=== PATIENT | female | born 1945 | race Caucasian/White ===

== ENCOUNTER → 2017-03-01 | Outpatient (CLI) | payer MEDICARE ==
--- NOTE | 2017-03-01 12:04 | PN ---
DATE OF SERVICE: 03/01/2017 A 71-year-old lady who has been [facility] in the [facility] for treatment of obstructive sleep apnea-hypopnea syndrome. Recently patient had home sleep apnea test which showed severe obstructive sleep apnea-hypopnea syndrome and then patient had CPAP titration. I discussed the results of the sleep studies with patient in detail. CPAP titration showed normalization of breathing with the pressure of 9 cm of water. Recently patient received her CPAP unit, she brought her CPAP unit with her for this appointment. On treatment with CPAP, she said it improved her sleep and she feels better during the day. [place] sleepiness scale was only 1. I checked her CPAP unit. CPAP pressure is 9 cm of water. Ramp is 15 minutes/ usage is 29 out of 30 nights and 26 out of 30 nights for more than 4 hours. Average usage is 6.4 hours. Leak is up to 26 L/min which is acceptable. Apnea- hypopnea index reading for the last month was 0.6 which is totally normal. MEDICATIONS: NovoLog, metformin, atorvastatin, triamterene, hydrochlorothiazide , valsartan, Toujeo, nitro-stat, vitamin D. During physical exam, patient in no distress, BP 109/41, HR 86, RR16, weight 299 , temp 98.2, oxygen saturation on room air 95%. OROPHARYNX: Short distance between soft palpate and pharyngeal wall, absence of uvula. ABDOMEN: Obese. EXTREMITIES: 1 to 2+ bilateral ( ) edema NECK: Supple, No JVD, Thyroid is not palpable. LUNGS: Clear to percussion and to auscultation. Good air exchange. No wheezing or rhonchi. HEART: S1, S2 regular. No murmurs, gallops or rubs. ABDOMEN: Soft and nontender, Bowel sounds are present. No organomegaly appreciated. GAMING TABLE OPERATOR: Awake, alert and oriented x3. Cranial nerves 2 to7 intact. There is no fasciculation or atrophy noted. No focal deficits observed. IMPRESSION: 1. Severe obstructive sleep apnea-hypopnea syndrome. Apnea-hypopnea index 30.5 under control with CPAP at 9 cm of water. Patient demonstrated very good compliance with treatment benefiting from treatment. 2. Obesity. 3. Hypertension. 4. Diabetes mellitus. 5. Hyperlipidemia. 6. Severe periodic limb movements during titration. Patient does not complain of many leg movements at night. 7. Diabetes mellitus. 8. Hyperlipidemia. 9. Status post surgical treatment for ovarian cyst. 10. Status post tonsillectomy and adenoidectomy. 11. Status post breast reduction. 12. Swelling of the legs. PLAN: 1. Patient will continue to use her CPAP every night for the whole night with the same regimen. 2. Aggressive losing weight. 3. Sleep hygiene with regular time in bed for at least 8 hours. 4. No driving of feeling any sleepiness. 5. Prescription for all necessary CPAP supplies. 6. Follow up visit in one year or earlier if patient has any problems with the her sleep or CPAP therapy. Thank you very much for allowing me to participate in the management of your patient. Sincerely, Sumit Drummond MD PhD, FAASM Diplomate of [place] [employer], Sleep Medicine Board by [place] [employer] [place] [employer] [facility]
== END | disposition home or self-care (01) ==
LOC: SLEEP 10:39
PROVIDERS: ATTEND Internal Medicine
DX: G47.33 Obstructive sleep apnea (adult) (pediatric) (principal); E66.9 Obesity, unspecified; I10 Essential (primary) hypertension; E11.9 Type 2 diabetes mellitus without complications; E78.5 Hyperlipidemia, unspecified; G47.61 Periodic limb movement disorder

== ENCOUNTER → 2018-04-18 | Outpatient (CLI) | payer MEDICARE ==
--- NOTE | 2018-04-18 16:58 | PN ---
PROGRESS NOTE DATE OF SERVICE: 04/18/2018 This patient is a 72-year-old lady who has been followed in the sleep center for treatment of obstructive sleep apnea-hypopnea syndrome. The patient has continued to use her equipment every night for the whole night without significant problems, although her mask is already quite old and she needs to replace it. She is using a full-face Marilu View mask. [place] Sleepiness Scale today is only 2. I checked patient's CPAP unit. CPAP pressure is 9 cm of water. Usage is 100% of the time, average 8.1 hours per night. Apnea-hypopnea index on the machine is only 0.3, which is totally perfect. Leak is high, 44 L/minute, but again patient's mask is old. MEDICATIONS: Medications are the same: 1. NovoLog. 2. Metformin. 3. Atorvastatin. 4. Triamterene. 5. Hydrochlorothiazide. 6. Valsartan. 7. Nitrostat. 8. Vitamin D. PHYSICAL EXAMINATION: GENERAL A pleasant patient in no distress. VITAL SIGNS: BP 130/71, HR 94, RR 16, height 5 feet 3 inches, weight 289, BMI 57.1. Temperature 97.4. Oxygen saturation at room air 96%. HEENT: PERRLA, EOMI. Evaluation of oropharynx showed tongue protrudes midline; moderately low position of soft palate. NECK: Supple. No JVD. Thyroid is not palpable. LUNGS: Clear to percussion and to auscultation. Good air exchange. No wheezing or rhonchi. HEART: S1, S2 regular. No murmurs, gallops or rubs. ABDOMEN: Obese. EXTREMITIES : One plus ankle edema. IMPRESSION: 1. Obstructive sleep apnea-hypopnea syndrome in severe range. Apnea-hypopnea index 30.5. Patient demonstrated 100% compliance with treatment, benefitting from treatment. 2. Obesity. 3. Hypertension. 4. Diabetes mellitus. 5. Hyperlipidemia. 6. History of periodic limb movements during titration. No problem with her legs at the present time. 7. Diabetes mellitus. 8. Hyperlipidemia. 9. Status post surgical treatment for ovarian cyst. 10.Status post tonsillectomy and adenoidectomy. 11.Status post breast reduction. PLAN: 1. Patient will continue to use his CPAP equipment every night for the whole night. 2. Prescription for all necessary CPAP supplies, including Marilu View full-face mask, tube, filters. 3. Losing weight. 4. Sleep hygiene with regular time in bed for at least 8 hours. 5. No driving if feeling any sleepiness. 6. Follow-up visit in one year or earlier if patient has any problems. Thank you very much for allowing me to participate in the management of your patient. Sincerely, Sumit Drummond MD, PhD, FAASM Diplomat of [place] [employer] [place] [employer] [facility] MMODL / ANAN: [id number] /
== END | disposition home or self-care (01) ==
LOC: SLEEP 14:56
PROVIDERS: ATTEND Internal Medicine
DX: G47.33 Obstructive sleep apnea (adult) (pediatric) (principal); I10 Essential (primary) hypertension; E11.9 Type 2 diabetes mellitus without complications; E78.5 Hyperlipidemia, unspecified; E66.9 Obesity, unspecified; Z68.43 Body mass index [BMI] 50.0-59.9, adult; Z90.89 Acquired absence of other organs; Z79.4 Long term (current) use of insulin; Z79.84 Long term (current) use of oral hypoglycemic drugs; Z79.899 Other long term (current) drug therapy; Z99.89 Dependence on other enabling machines and devices; Z98.890 Other specified postprocedural states

== ENCOUNTER 2023-01-09 08:18 | Day surgery (SDC) | payer MEDICARE, OTHER ==
[2023-01-04 15:02] VITALS: BMI 30.2
[~2023-01-09 08:18] MED LIST: DEXAMETHASONE SOD PHOSPHATE 4 MG/ML 1 ML VIAL IV ONE; HYDROmorphone 0.5 MG/0.5 ML SYRINGE IVP PRN; LACTATED RINGERS 1,000 ML IV SCH; LIDOCAINE 1% (10MG/ML) FOR IV START INTRADERMA PRN; MIDAZOLAM 2 MG/2 ML VIAL IV PRN; ONDANSETRON 4 MG/2 ML VIAL IVP ONE
--- NOTE | 2023-01-09 08:26 | P.HPIHPCON ---
History of Present Illness H&P Date: 01/09/23 Chief Complaint: Right sided ureteral stone This is a 77-year-old female with history of a 7 mm right-sided proximal ureteral stone. Underwent a stent insertion on November 24. She presents today for definitive stone management. Discussed option of right-sided ureteroscopy with holmium laser. Risk of bleeding, infection, injury to the ureter was discussed in detail. Risk of anesthesia also discussed. She understood all the risk and agreed to proceed with right-sided ureteroscopy, with holmium laser lithotripsy, stone basketing and stent removal Consent for Procedure: I have explained the operation/procedure to the patient, including the risks, benefits, side effects, alternative therapies (including not receiving the proposed treatment or service), the likelihood of the patient achieving his/her goals, and potential recuperation problems for the procedure/sedation/analgesia, as well as any blood products, if indicated. I also explained to the patient the risks, benefits and side effects of the alternatives, as well as the risks rel ated to not receiving the proposed procedure, care, treatment, or services. Past Medical History Past Medical History: Cancer, Diabetes Mellitus, Hyperlipidemia, Hypertension, Renal Disease, Sleep Apnea/CPAP/BIPAP, Supraventricular Tachycardia (SVT) Additional Past Medical History / Comment(s): ECF RESIDENT. BRAIN TUMOR-WAS SMALL AND DISCOVERED IN 2015, PT DID NOT FOLLOW UP AND NOW IT IS LARGER AND SYMPTOMATIC-UNK IF CANCEROUS AT THIS POINT-LOTS OF DIZZINESS WITH POSITION CHANGES. PT WAS TAKEN OFF DIABETIC MEDS DUE TO NORMAL BS AND HGB A1C OF 4.2, HAS RECENTLY BEEN ON STEROIDS AND HAS HAD ELEVATED SUGARS AND HER DR IS AWARE History of Any Multi-Drug Resistant Organisms: None Reported Past Surgical History: Adenoidectomy, Breast Surgery, Tonsillectomy Additional Past Surgical History / Comment(s): BREAST REDUCTION. SURG. FOR OVARIAN CYST Past Anesthesia/Blood Transfusion Reactions: Motion Sickness Additional Past Anesthesia/Blood Transfusion Reaction / Comment(s): HX OF VERTIGO Past Psychological History: No Psychological Hx Reported Smoking Status: Never smoker Past Alcohol Use History: None Reported Past Drug Use History: None Reported - Past Family History Father Family Medical History: Cancer Mother Family Medical History: COPD Medications and Allergies Home Medications Medication Instructions Recorded Confirmed Type Atorvastatin Calcium 20 mg PO HS 01/04/23 01/04/23 History Flecainide Acetate [Tambocor] 100 mg PO Q12H 01/04/23 01/04/23 History Magnesium Oxide [Mag-Ox] 400 mg PO DAILY 01/04/23 01/04/23 History Allergies Allergy/AdvReac Type Severity Reaction Status Date / Time methocarbamol [From Robaxin] Allergy Unknown Verified 01/04/23 14:54 Sulfa (Sulfonamide Allergy Unknown Verified 01/04/23 14:54 Antibiotics) Surgical - Exam - General no distress, moderate pain - Eyes normal ocular movement, no pale - ENT normal nares, normal mucosa - Respiratory normal expansion, normal respiratory effort Assessment and Plan Assessment: OR for right-sided ureteroscopy, with holmium laser lithotripsy, stone basketing and stent removal
--- NOTE | 2023-01-09 08:52 | XR ---
EXAMINATION TYPE: XR KUB DATE OF EXAM: 01/09/2023 Comparison: None Clinical History: 77-year-old female N20.1 Findings: Right-sided ureteral stent. Prominent vascular calcifications in the pelvis. Nonobstructive bowel gas pattern. Multiple moderate stool in the right side of the abdomen. Some focal mottled hypodensity me asuring 6.3 x 3.3 cm in the left side of the pelvis. Unclear if these represent calcified fibroids or residual oral contrast material. Other etiology not excluded at this time. Numerous small pelvic phleboliths. No definite suspicious calcification along the course of the urete ral stent. Moderate degenerative changes both hips and bridging endplate spondylosis lumbar spine. Impression: 1. Right-sided ureteral stent. No definite suspicious calcification seen along the course of the sten t. 2. 6.3 x 3.3 cm focal area of mottled high density in the left side of the pelvis. Unclear if this re presents residual oral contrast, calcified fibroids, or other abnormality. Outpatient contrast-enhanc ed CT of the pelvis can further evaluate.
[2023-01-09 09:41] LABS: Glucose,Whole Blood 127 mg/dL (70-110)
[2023-01-09] MEDS ORDERED: MIDAZOLAM 2 MG/2 ML VIAL ONE (10:00)
[2023-01-09] MEDS ORDERED: HYDROCORTISONE SUCCINATE 100 MG/2 ML VIAL ONE (10:00)
[2023-01-09] MEDS ORDERED: LIDOCAINE 2% INJ 20 MG/ML (2 ML VIAL) ONE (10:00)
[2023-01-09] MEDS ORDERED: fentaNYL (PF) 50 MCG/ML 2 ML AMP ONE (10:00)
[2023-01-09] MEDS ORDERED: PROPOFOL 10 MG/ML 20 ML VIAL IV ONE (10:00)
[2023-01-09] MEDS ORDERED: ePHEDrine 50 MG/ML 1 ML VIAL ONE (10:00)
[2023-01-09 10:21] LABS: African American GFR (CKD) >90 (>60 ml/min/1.73 sqM); Anion Gap 10 mmol/L; Blood Urea Nitrogen 35 mg/dL (7-17); Carbon Dioxide 24 mmol/L (22-30); Chloride 100 mmol/L (98-107); Glucose 138 mg/dL (74-99); Non-African American GFR(CKD) 87 (>60 ml/min/1.73 sqM); Sodium 134 mmol/L (137-145)
[2023-01-09 10:31] LABS: Potassium 4.4 mmol/L (3.5-5.1)
[2023-01-09 11:08] VITALS: TEMP 97
--- NOTE | 2023-01-09 11:23 | P.OP ---
Date of Procedure: 01/09/23 Preoperative Diagnosis: Right ureteral, renal stones Postoperative Diagnosis: Same l Procedure(s) Performed: Cystoscopy, right ureteroscopy, holmium laser lithotripsy Implants: none Anesthesia: OSIELA Surgeon: Braxton Castaneda Estimated Blood Loss (ml): 5 Pathology: other (Right ureteral, renal stones) Condition: stable Disposition: PACU Indications for Procedure: This is a 77-year-old female with history of a 7 mm right-sided proximal ureteral stone. Underwent a stent insertion on November 24. She presents today for definitive stone management. Discussed option of right-sided ureteroscopy with holmium laser. Risk of bleeding, infection, injury to the ureter was discussed in detail. Risk of anesthesia also discussed. She understood all the risk and agreed to proceed with right-sided ureteroscopy, with holmium laser lithotripsy, stone basketing and stent removal Operative Findings: Right proximal ureteral stone, small stones within the lower pole Description of Procedure: Patient brought to the operating room, general anesthesia was induced. She was prepped and draped in sterile fashion and placed in dorsal lithotomy position. Cystoscopy fitted 21-Ind[place] sheath was inserted per urethra, cystoscopy was performed which showed no abnormality within the bladder. Attention was then carried to the right ureteral stent which was grabbed and removed to the meatus. Next a sensor wire was advanced through the stent the stent was removed with the wire in place. Next under fluoroscopy 1113 [place] access sheath was passed over the wire and into the proximal ureter. Next a flexible ureteroscope was inserted through the access sheath, at this point a large stone was encountered in the proximal ureter. Using the holmium laser the stone was fragmented, sizable fragments were removed using the stone basket. Repeat renoscopy showed no sizable fragments or injury to the kidney. Of note there was a additional stone in the lower pole that was grasped and removed intact and sent to p athology. Repeat renoscopy showed no injury to the kidney or any sizable fragments. Pullback ureteroscopy was performed showed no injury to the ureter or any ureteral fragments. The bladder was emptied at the end of the case. Patient tolerated procedure well was taken to recovery in stable condition
[2023-01-09 12:17] LABS: Glucose,Whole Blood 165 mg/dL (70-110)
[2023-01-09 12:43] VITALS: RESP 17
[2023-01-09 13:21] VITALS: BP 115/69; PULSE 68
--- NOTE | 2023-01-09 15:33 | FL ---
EXAMINATION TYPE: FL guidance operating room DATE OF EXAM: 01/09/2023 FLUOROSCOPY Fluoroscopy time of 11 seconds was used during urologic intervention for right kidney stone lithotrip sy. 2 image/s document/s the procedure. DOSE AREA PRODUCT (DAP) UGY*M,MGY*CM: 0.037.
== END 2023-01-09 13:25 | disposition home or self-care (01) ==
LOC: OR 08:18
PROVIDERS: ATTEND Urology
DX: N20.2 Calculus of kidney with calculus of ureter (principal); I10 Essential (primary) hypertension; E78.5 Hyperlipidemia, unspecified; G47.33 Obstructive sleep apnea (adult) (pediatric); E11.9 Type 2 diabetes mellitus without complications; K21.9 Gastro-esophageal reflux disease without esophagitis; Z85.841 Personal history of malignant neoplasm of brain; Z79.84 Long term (current) use of oral hypoglycemic drugs; Z79.899 Other long term (current) drug therapy; Z88.2 Allergy status to sulfonamides; Z88.8 Allergy status to other drugs, medicaments and biological substances
CPT/HCPCS: 52353; 80048; 82365; 74018; C1769; J2250; J1100; J1720; J0690; J2405; J3010; J2704; J2001

== ENCOUNTER 2023-05-02 11:55 | Observation (INO) | payer MEDICARE, OTHER ==
--- NOTE | 2023-05-02 12:19 | ED ---
General Adult HPI - General Source: patient, RN notes reviewed Mode of arrival: ambulatory Limitations: no limitations <Abelino Pan - Last Filed: 05/02/23 12:18> - General Source: RN notes reviewed, old records reviewed Mode of arrival: ambulatory Limitations: no limitations - History of Present Illness -: month(s) Radiation: non-radiation Severity scale (1-10): 7 Quality: sharp Consistency: constant Improves with: none Worsens with: none Associated Symptoms: denies other symptoms Treatments Prior to Arrival: none <Harry Hwang - Last Filed: 05/09/23 17:16> - General Stated complaint: Abn Labs Time Seen by Provider: 05/02/23 12:18 - History of Present Illness Initial comments: 77-year-old female presents emergency Department chief complaint of right sided infection by her buttocks, hip. Patient states she started a small wound that has steadily gotten worse. She states that she saw PCP today and was sent here for evaluation possible admission. They're concerned that she has cellulitis, ulceration. (Abelino Pan) This is a 77-year-old female to the emergency room today for evaluation of right-sided buttox infection. History of sacral ulcer which is gotten significant way worse sent in by PCP as it is significantly swollen ulcerated with drainage malodorous. Patient denies abdominal pain fever no nausea vomiting currently. (Harry Hwang) - Related Data Home Medications Medication Instructions Recorded Confirmed Atorvastatin Calcium 20 mg PO HS 01/04/23 05/02/23 Magnesium Oxide [Mag-Ox] 400 mg PO DAILY 01/04/23 05/02/23 Aspirin EC [Ecotrin Low Dose] 81 mg PO DAILY 05/02/23 05/02/23 Cholecalciferol [Vitamin D3 (25 25 mcg PO DAILY 05/02/23 05/02/23 Mcg = 1000 Iu)] Metoprolol Succinate (ER) [Toprol 25 mg PO DAILY 05/02/23 05/02/23 XL] Previous Rx's Medication Instructions Recorded Doxycycline [Vibramycin] 100 mg PO BID 10 Days #20 capsule 05/05/23 Pantoprazole [Protonix] 40 mg PO AC-BRKFST #30 tab 05/05/23 Allergies Allergy/AdvReac Type Severity Reaction Status Date / Time methocarbamol [From Robaxin] Allergy Unknown Verified 05/02/23 12:39 Sulfa (Sulfonamide Allergy Unknown Verified 05/02/23 12:39 Antibiotics) Review of Systems ROS Other: All systems not noted in ROS Statement are negative. <Abelino Pan - Last Filed: 05/02/23 12:18> ROS Other: All systems not noted in ROS Statement are negative. <Harry Hwang - Last Filed: 05/09/23 17:16> ROS Statement: Those systems with pertinent positive or pertinent negative responses have been documented in the HPI. Past Medical History Past Medical History: Cancer, Diabetes Mellitus, Hyperlipidemia, Hypertension, Renal Disease, Sleep Apnea/CPAP/BIPAP, Supraventricular Tachycardia (SVT) Additional Past Medical History / Comment(s): ECF RESIDENT. BRAIN TUMOR-WAS SMALL AND DISCOVERED IN 2015, PT DID NOT FOLLOW UP AND NOW IT IS LARGER AND SYMPTOMATIC-UNK IF CANCEROUS AT THIS POINT-LOTS OF DIZZINESS WITH POSITION CHANGES. PT WAS TAKEN OFF DIABETIC MEDS DUE TO NORMAL BS AND HGB A1C OF 4.2, HAS RECENTLY BEEN ON STEROIDS AND HAS HAD ELEVATED SUGARS AND HER DR IS AWARE History of Any Multi-Drug Resistant Organisms: None Reported Past Surgical History: Adenoidectomy, Breast Surgery, Tonsillectomy Additional Past Surgical History / Comment(s): BREAST REDUCTION. SURG. FOR OVARIAN CYST Past Anesthesia/Blood Transfusion Reactions: Motion Sickness Additional Past Anesthesia/Blood Transfusion Reaction / Comment(s): HX OF VERTIGO Past Psychological History: No Psychological Hx Reported Smoking Status: Never smoker Past Alcohol Use History: None Reported Past Drug Use History: None Reported - Past Family History Father Family Medical History: Cancer Mother Family Medical History: COPD <Abelino Pan - Last Filed: 05/02/23 12:18> General Exam <Abelino Pan - Last Filed: 05/02/23 12:18> General appearance: alert, in no apparent distress Head exam: Present: atraumatic, normocephalic, normal inspection Eye exam: Present: normal appearance, PERRL, EOMI. Absent: scleral icterus, conjunctival injection, periorbital swelling ENT exam: Present: normal exam, mucous membranes moist Neck exam: Present: normal inspection. Absent: tenderness, meningismus, lymphadenopathy Respiratory exam: Present: normal lung sounds bilaterally. Absent: respiratory distress, wheezes, rales, rhonchi, stridor Cardiovascular Exam: Present: regular rate, normal rhythm, normal heart sounds. Absent: systolic murmur, diastolic murmur, rubs, gallop, clicks GI/Abdominal exam: Present: soft, normal bowel sounds. Absent: distended, tenderness, guarding, rebound, rigid Extremities exam: Present: normal inspection, full ROM, normal capillary refill. Absent: tenderness, pedal edema, joint swelling, calf tenderness Back exam: Present: normal inspection Neurological exam: Present: alert, oriented X3, CN II-XII intact Psychiatric exam: Present: normal affect, normal mood Skin exam: Present: warm, dry, intact, normal color. Absent: rash <Harry Hwang - Last Filed: 05/09/23 17:16> - General Exam Comments Initial Comments: Visual Physical Exam Vital signs reviewed General: Well-appearing, nontoxic, no acute distress. Head: Normocephalic, atraumatic Eyes: PERRLA, EOMI ENT: Airway patent Chest: Nonlabored breathing Skin: No visual rash, normal skin tone Neuro: Alert and oriented 3 Musculoskeletal: No gross abnormalities (Abelino Pan) Course <Harry Hwang - Last Filed: 05/09/23 17:16> Vital Signs 05/02/23 05/02/23 05/03/23 12:36 22:30 01:44 Temperature 97.6 F Pulse Rate 59 L 66 63 Pulse Rate [ Pulse Oximetery ] Respiratory 18 16 16 Rate Blood Pressure 133/59 134/77 149/82 Blood Pressure [Right Arm] O2 Sat by Pulse 100 100 100 Oximetry 05/03/23 02:00 Temperature 97.6 F Pulse Rate Pulse Rate [ 67 Pulse Oximetery ] Respiratory 15 Rate Blood Pressure Blood Pressure 130/76 [Right Arm] O2 Sat by Pulse 100 Oximetry - Reevaluation(s) Reevaluation #1: 05/02/23 19:34 Medical records reviewed (Harry Hwang) Reevaluation #2: 05/02/23 19:34 Patient symptoms unchanged (Harry Hwang) Reevaluation #3: 05/02/23 19:34 Patient informed results questions answered (Harry Hwang) Reevaluation #4: 05/02/23 19:34 Was pt. sent in by a medical professional or institution (JASWINDER Fowler, DATA INPUT CLERK, urgent care, hospital, or halfway...) When possible be specific @ -no Did you speak to anyone other than the patient for history (EMS, parent, family, police, friend...)? What history was obtained from this source @ -no Did you review nursing and triage notes (agree or disagree)? Why? @ -agree Are old charts reviewed (outside hosp., previous admission, EMS record, old EKG, old radiological studies, urgent care reports/EKG's, halfway records)? Report findings @ -yes Differential Diagnosis (chest pain, altered mental status, abdominal pain women, abdominal pain men, vaginal bleeding, weakness, fever, dyspnea, syncope, headache, dizziness, GI bleed, back pain, seizure, CVA, palpatations, mental health, musculoskeletal)? @ -prior EKG interpreted by me (3pts min.). @ -no X-rays interpreted by me (1pt min.). @ -no CT interpreted by me (1pt min.). @ -no U/S interpreted by me (1pt. min.). @ -no What testing was considered but not performed or refused? (CT, X-rays, U/S, labs)? Why? @ -none What meds were considered but not given or refused? Why? @ -none Did you discuss the management of the patient with other professionals (professionals i.e. JASWINDER Fowler, DATA INPUT CLERK, lab, RT, psych nurse, social media specialist, side door worker, teacher, radiation safety officer, case briefer)? Give summary @ -no Was smoking cessation discussed for >3mins.? @ -no Was critical care preformed (if so, how long)? @ -no Were there social determinants of health that impacted care today? How? (Homelessness, low income, unemployed, alcoholism, drug addiction, transportation, low edu. Level, literacy, decrease access to med. care, custodial, rehab)? @ -none Was there de-escalation of care discussed even if they declined (Discuss DNR or withdrawal of care, Hospice)? DNR status @ -no What co-morbidities impacted this encounter? (DM, HTN, Smoking, COPD, CAD, Cancer, CVA, ARF, Chemo, Hep., AIDS, mental health diagnosis, sleep apnea, morbid obesity)? @ -none Was patient admitted / discharged? Hospital course, mention meds given and route, prescriptions, significant lab abnormalities, going to OR and other pertinent info. @ - 77 female to the emergency department for evaluation of right sacral decubitus ulcer. Patient be admitted for will care and IV antibiotics secondary to malodorous discharge Admitted Undiagnosed new problem with uncertain prognosis? @ -no Drug Therapy requiring intensive monitoring for toxicity (Heparin, Nitro, Insulin, Cardizem)? @ -no Were any procedures done? @ -no Diagnosis/symptom? @ -Sacral decubitus ulcer with infection Acute, or Chronic, or Acute on Chronic? @ -Acute Uncomplicated (without systemic symptoms) or Complicated (systemic symptoms)? @ -Complicated Side effects of treatment? @ -no Exacerbation, Progression, or Severe Exacerbation? @ -exacerbation Poses a threat to life or bodily function? How? (Chest pain, [place], [place], pneumonia, PE, COPD, DKA, ARF, appy, cholecystitis, CVA, Diverticulitis, Homicidal, Suicidal, threat to staff... and all critical care pts) @ -yes with abscess, sepsis, need for surgery (Harry Hwang) - Consultations Consultation #1: Spoke with PMH of the admit this patient (Harry Hwang) Medical Decision Making <Abelino Pan - Last Filed: 05/02/23 12:18> - Lab Data Result diagrams: 05/03/23 05:28 05/05/23 06:50 <Harry Hwang - Last Filed: 05/09/23 17:16> - Medical Decision Making I performed a quick note portion of this Chart signed Abelino Pan PA-C (Abelino Pan) 77 female to the emergency department for evaluation of right sacral decubitus ulcer. Patient be admitted for will care and IV antibiotics secondary to malodorous discharge (Harry Hwang) - Lab Data Lab Results 05/02/23 05/02/23 05/02/23 Range/Units 13:29 13:29 16:41 WBC 8.1 (3.8-10.6) k/uL RBC 4.93 (3.80-5.40) m/uL Hgb 14.4 (11.4-16.0) gm/dL Hct 45.3 (34.0-46.0) % MCV 91.8 (80.0-100.0) fL MCH 29.1 (25.0-35.0) pg MCHC 31.7 (31.0-37.0) g/dL RDW 13.4 (11.5-15.5) % Plt Count 176 (150-450) k/uL MPV 9.1 Neutrophils % 56 % Lymphocytes % 29 % Monocytes % 7 % Eosinophils % 4 % Basophils % 1 % Neutrophils # 4.5 (1.3-7.7) k/uL Lymphocytes # 2.4 (1.0-4.8) k/uL Monocytes # 0.5 (0-1.0) k/uL Eosinophils # 0.4 (0-0.7) k/uL Basophils # 0.1 (0-0.2) k/uL Sodium 138 (137-145) mmol/L Potassium 4.9 (3.5-5.1) mmol/L Chloride 103 (98-107) mmol/L Carbon Dioxide 27 (22-30) mmol/L Anion Gap 8 mmol/L BUN 26 H (7-17) mg/dL Creatinine 0.74 (0.52-1.04) mg/dL Est GFR (CKD-EPI)AfAm >90 (>60 ml/min/1.73 sqM) Est GFR (CKD-EPI)NonAf 80 (>60 ml/min/1.73 sqM) Glucose 144 H (74-99) mg/dL Plasma Lactic Acid Daniel 1.4 (0.7-2.0) mmol/L Calcium 9.3 (8.4-10.2) mg/dL Total Bilirubin 1.0 (0.2-1.3) mg/dL AST 44 H (14-36) U/L ALT 23 (4-34) U/L Alkaline Phosphatase 92 (38-126) U/L Total Protein 6.8 (6.3-8.2) g/dL Albumin 4.0 (3.5-5.0) g/dL Disposition <Abelino Pan - Last Filed: 05/02/23 12:18> Is patient prescribed a controlled substance at d/c from ED?: No Time of Disposition: 19:30 <Harry Hwang - Last Filed: 05/09/23 17:16> Clinical Impression: Decubitus ulcer of right buttock, Abscess of right thigh, Cellulitis Disposition: ADMITTED IP TO THIS HOSP Condition: Stable
[2023-05-02 14:17] LABS: ALT 23 U/L (4-34); African American GFR (CKD) >90 (>60 ml/min/1.73 sqM); Anion Gap 8 mmol/L; Blood Urea Nitrogen 26 mg/dL (7-17); Calcium 9.3 mg/dL (8.4-10.2); Carbon Dioxide 27 mmol/L (22-30); Chloride 103 mmol/L (98-107); Glucose 144 mg/dL (74-99); Non-African American GFR(CKD) 80 (>60 ml/min/1.73 sqM); Sodium 138 mmol/L (137-145); Total Protein 6.8 g/dL (6.3-8.2)
[2023-05-02 14:40] LABS: AST 44 U/L (14-36); Alkaline Phosphatase 92 U/L (38-126); Potassium 4.9 mmol/L (3.5-5.1)
[2023-05-02 17:04] LABS: Basophils # (A) 0.1 k/uL (0-0.2); Basophils % (A) 1 %; Eosinophils # (A) 0.4 k/uL (0-0.7); Eosinophils % (A) 4 %; HCT 45.3 % (34.0-46.0); HGB 14.4 gm/dL (11.4-16.0); Lymphocytes # (A) 2.4 k/uL (1.0-4.8); Lymphocytes % (A) 29 %; MCH 29.1 pg (25.0-35.0); MCHC 31.7 g/dL (31.0-37.0); MCV 91.8 fL (80.0-100.0); Mean Platelet Volume 9.1; Monocytes # (A) 0.5 k/uL (0-1.0); Monocytes % (A) 7 %; Neutrophils # (A) 4.5 k/uL (1.3-7.7); Neutrophils % (A) 56 %; Platelet Count 176 k/uL (150-450); RBC 4.93 m/uL (3.80-5.40); RDW 13.4 % (11.5-15.5); WBC 8.1 k/uL (3.8-10.6)
[2023-05-02] MEDS ORDERED: MORPHINE SULFATE 4 MG/ML SYRINGE IVP PRN (19:29)
[2023-05-02] MEDS ORDERED: VANCOMYCIN IV PER PHARMACY 1 EACH MISC MISCELLANE PRN (19:29)
[2023-05-02] MEDS ORDERED: MORPHINE SULFATE 4 MG/ML SYRINGE IVP STA (19:29)
[2023-05-02] MEDS ORDERED: NALOXONE 0.4 MG/ML 1 ML VIAL IV PRN (19:32)
[2023-05-02] MEDS ORDERED: ONDANSETRON 4 MG/2 ML VIAL IVP PRN (19:32)
[2023-05-02] MEDS ORDERED: VANCOMYCIN 1,250 MG in SODIUM CHLORIDE 0.9% 250 ML IVPB ONE (20:00)
[2023-05-02] MEDS: SODIUM CHLORIDE 0.9% 1,000 ML IV SCH (20:48)
[2023-05-03 08:36] LABS: Basophils # (A) 0.07 X 10*3/uL (0.00-0.10); Basophils % (A) 1.3 %; Eosinophils # (A) 0.26 X 10*3/uL (0.04-0.35); HGB 12.9 d/dL (12.0-15.0); MCH 28.9 pg (27.0-32.0); MCHC 32.3 d/dL (32.0-37.0); MCV 89.7 FL (80.0-97.0); Mean Platelet Volume 11.2 FL (9.5-12.2); Monocytes % (A) 7.6 %; NRBC Per 100 WBC 0 X 10*3/uL (0.00-0.01); Neutrophils % (A) 43.9 %; Platelet Count 176 X 10*3/uL (140-440); RBC 4.46 X 10*6/uL (4.10-5.20); RDW 12.9 % (11.5-14.5); WBC 5.24 X 10*3/uL (4.50-10.00)
[2023-05-03] MEDS ORDERED: PANTOPRAZOLE 40 MG/10 ML VIAL IV SCH (09:00)
[2023-05-03 09:09] LABS: ALT 27 U/L (8-44); AST 43 U/L (13-35); Albumin 3.8 d/dL (3.8-4.9); Albumin/Globulin Ratio 2.11 Ratio (1.60-3.17); Alkaline Phosphatase 102 U/L (41-126); BUN/Creat Ratio 29.14 Ratio (12.00-20.00); Blood Urea Nitrogen 20.4 mg/dL (9.0-27.0); Carbon Dioxide 26.3 mmol/L (21.6-31.8); Chloride 104 mmol/L (96-109); Globulin 1.8 d/dL (1.6-3.3); Glucose 99 mg/dL (70-110); Magnesium 1.7 mg/dL (1.5-2.4); Phosphorus 3.3 mg/dL (2.4-5.1); Potassium 3.8 mmol/L (3.5-5.5); Sodium 142 mmol/L (135-145); Total Bilirubin 0.4 mg/dL (0.3-1.2); Total Protein 5.6 d/dL (6.2-8.2)
[2023-05-03] MEDS: VANCOMYCIN 1,500 MG in SODIUM CHLORIDE 0.9% 500 ML 500 ML IVPB SCH ×2 (09:53→22:31)
[2023-05-03] MEDS: SODIUM CHLORIDE 0.9% 1,000 ML IV SCH ×2 (09:57→22:31)
[2023-05-03] MEDS: METOPROLOL SUCCINATE (ER) 25 MG TAB.ER.24H PO SCH (12:25)
--- NOTE | 2023-05-03 13:04 | P.HPIM ---
History of Present Illness H&P Date: 05/03/23 This is a 77-year-old female with medical history of diabetes, hypertension, hyperlipidemia, sleep apnea. Presented to the hospital with concern for a ulcer/wound on her right gluteal cleft region that has opened up on has been draining. Reports last 2 days of feeling chilled and fatigued but no fever. Denies shortness of breath denies chest pain. No nausea vomiting diarrhea, no pain. On assessment in the right gluteal fold there is a 4 inch area of induration with a center ulceration that has purulent drainage. Patient has been afebrile here, initial work up shows normal white blood cell count. Started on empiric antibiotic coverage with ceftriaxone and vancomycin. General surgery will be consulted for possible I and D. REVIEW OF SYSTEMS: CONSTITUTIONAL: No fever, no malaise, no fatigue. HEENT: No recent visual problems or hearing problems. Denied any sore throat. CARDIOVASCULAR: No chest pain, orthopnea, PND, no palpitations, no syncope. PULMONARY: No shortness of breath, no cough, no hemoptysis. GASTROINTESTINAL: No diarrhea, no nausea, no vomiting, no abdominal pain. NEUROLOGICAL: No headaches, no weakness, no numbness. HEMATOLOGICAL: Denies any bleeding or petechiae. GENITOURINARY: Denies any burning micturition, frequency, or urgency. MUSCULOSKELETAL/RHEUMATOLOGICAL: Denies any joint pain, swelling, or any muscle pain. ENDOCRINE: Denies any polyuria or polydipsia. The rest of the 14-point review of systems is negative. PHYSICAL EXAMINATION: GENERAL: The patient is alert and oriented x3, not in any acute distress. Well developed, well nourished. HEENT: Pupils are round and equally reacting to light. EOMI. No scleral icterus. No conjunctival pallor. Normocephalic, atraumatic. No pharyngeal erythema. No thyromegaly. CARDIOVASCULAR: S1 and S2 present. No murmurs, rubs, or gallops. PULMONARY: Chest is clear to auscultation, no wheezing or crackles. ABDOMEN: Soft, nontender, nondistended, normoactive bowel sounds. No palpable organomegaly. MUSCULOSKELETAL: No joint swelling or deformity. EXTREMITIES: No cyanosis, clubbing, or pedal edema. NEUROLOGICAL: Gross neurological examination did not reveal any focal deficits. SKIN: 4 in area of induration right thigh/gluteal cleft with central ulceration with purulent and serosanguineous drainage. Assessment and Plan Right gluteal abscess with cellulitis and surrounding induration no evidence of sepsis patient need I and D and surgery has been consulted. Infectious disease is also consulted for antibiotic recommendations Diabetes Mellitus type 2 controlled Hypertension Hyperlipidemia resumed on statin Hx of brain tumor being monitored History of SVT on Toprol XL History of sleep apnea Obesity GI Prophylaxis DVT prophylaxis Full Code The impression and plan of care has been dictated by Magdalene Henry, Nurse Practitioner as directed. Dr. Anamaria MD I have performed a history and physical examination and medical decision making of this patient, discussed the same with the dictator, and agree with the dictators assessment and plan as written, documented as a scribe. Based on total visit time, I have performed more than 50% of this visit. Past Medical History Past Medical History: Cancer, Diabetes Mellitus, Hyperlipidemia, Hypertension, Renal Disease, Sleep Apnea/CPAP/BIPAP, Supraventricular Tachycardia (SVT) Additional Past Medical History / Comment(s): BRAIN TUMOR-WAS SMALL AND DISCOVERED IN 2016, PT DID NOT FOLLOW UP AND NOW IT IS LARGER AND SYMPTOMATIC- UNK IF CANCEROUS AT THIS POINT-LOTS OF DIZZINESS WITH POSITION CHANGES. PT WAS TAKEN OFF DIABETIC MEDS DUE TO NORMAL BS AND HGB A1C OF 4.2, HAS RECENTLY BEEN ON STEROIDS AND HAS HAD ELEVATED SUGARS AND HER DR IS AWARE History of Any Multi-Drug Resistant Organisms: None Reported Past Surgical History: Adenoidectomy, Breast Surgery, Tonsillectomy Additional Past Surgical History / Comment(s): BREAST REDUCTION. SURG. FOR OVARIAN CYST Past Anesthesia/Blood Transfusion Reactions: Motion Sickness Additional Past Anesthesia/Blood Transfusion Reaction / Comment(s): HX OF VERTIGO Past Psychological History: No Psychological Hx Reported Smoking Status: Never smoker Past Alcohol Use History: None Reported Past Drug Use History: None Reported - Past Family History Father Family Medical History: Cancer Mother Family Medical History: COPD Medications and Allergies Home Medications Medication Instructions Recorded Confirmed Type Atorvastatin Calcium 20 mg PO HS 01/04/23 05/02/23 History Magnesium Oxide [Mag-Ox] 400 mg PO DAILY 01/04/23 05/02/23 History Aspirin EC [Ecotrin Low Dose] 81 mg PO DAILY 05/02/23 05/02/23 History Cholecalciferol [Vitamin D3 (25 25 mcg PO DAILY 05/02/23 05/02/23 History Mcg = 1000 Iu)] Metoprolol Succinate (ER) [Toprol 25 mg PO DAILY 05/02/23 05/02/23 History Xl] Allergies Allergy/AdvReac Type Severity Reaction Status Date / Time methocarbamol [From Robaxin] Allergy Unknown Verified 05/02/23 12:39 Sulfa (Sulfonamide Allergy Unknown Verified 05/02/23 12:39 Antibiotics) Physical Exam Vitals: Vital Signs Temp Pulse Pulse Resp BP BP Pulse Ox 05/03/23 07:00 97.8 F 63 16 145/74 100 05/03/23 02:00 97.6 F 67 15 130/76 100 05/03/23 01:44 63 16 149/82 100 05/02/23 22:30 66 16 134/77 100 05/02/23 12:36 97.6 F 59 L 18 133/59 100 Intake and Output 05/02/23 05/03/23 05/03/23 22:59 06:59 14:59 Other: # Voids 1 Weight 77.564 kg Results CBC & Chem 7: 05/03/23 05:28 05/03/23 05:28 Labs: Abnormal Lab Results - Last 24 Hours (Table) 05/02/23 Range/Units 13:29 BUN 26 H (7-17) mg/dL Glucose 144 H (74-99) mg/dL AST 44 H (14-36) U/L Thrombosis Risk Factor Assmnt - Choose All That Apply Any of the Below Risk Factors Present?: Yes Each Factor Represents 1 point: Abnormal pulmonary function (COPD), Obesity (BMI >25) Other Risk Factors: Yes Each Risk Factor Represents 3 Points: Elevated anticardiolipin antibodies Other congenital or acquired thrombophilia - If yes, enter type in comment: No Thrombosis Risk Factor Assessment Total Risk Factor Score: 5 Thrombosis Risk Factor Assessment Level: High Risk Assessment and Plan Time with Patient: Less than 30
--- NOTE | 2023-05-03 13:25 | P.GSCN ---
History of Present Illness Consult date: 05/03/23 History of present illness: CHIEF COMPLAINT: Right posterior upper thigh abscess HISTORY OF PRESENT ILLNESS: This is a 77-year-old female who presented with a right upper thigh posterior abscess. Patient reports that it started as a bump about one week ago and continued to increase in size with pain and swelling. Patient reports that it is now draining and since it has started draining she's had decrease in pain. She reports feeling feverish. She is a diabetic. She reports that her hemoglobin A1c outpatient was around 6. She denies any prior history of abscesses. Denies any history of MRSA. Patient is currently on IV antibiotics and followed by infectious disease. Surgical consulted for possible I&D of abscess. PAST MEDICAL HISTORY: See below PAST SURGICAL HISTORY: See below MEDICATIONS: See below ALLERGIES: See below SOCIAL HISTORY: No illicit drug use. REVIEW OF SYSTEMS: CONSTITUTIONAL: Denies fever or chills. HEENT: Denies blurred vision, vision changes, or eye pain. Denies hemoptysis CARDIOVASCULAR: Denies chest pain or pressure. RESPIRATORY: No shortness of breath. GASTROINTESTINAL: See HPI for pertinent findings HEMATOLOGIC: Denies bleeding disorders. GENITOURINARY: Denies any blood in urine or increased urinary frequency. SKIN: Denies pruitis. Denies rash. PHYSICAL EXAM: VITAL SIGNS: Reviewed GENERAL: Well-developed in no acute distress. ABDOMEN: Soft. Nondistended. Nontender NEUROLOGIC: Alert and oriented. Cranial nerves II through XII grossly intact. SKIN: Right, upper posterior thigh just below the gluteal crease there is area of erythema with purulent drainage. Mild tenderness with palpation. No fluctuance. Mild induration. LABORATORY DATA: WBC 5.24 Hgb 12.9 platelets 176 Sodium 142 potassium 3.8 creatinine 0.7 IMAGING: ASSESSMENT: 1. Right upper thigh abscess actively draining 2. History of diabetes mellitus with normal hemoglobin A1c PLAN: -Continue to monitor -Continue antibiotics per infectious disease -Patient to shower -Continue warm compresses Thank you for this consultation Physician Power Plant Superintendent note has been reviewed by physician. Signing provider agrees with the documented findings, assessment, and plan of care. Past Medical History Past Medical History: Cancer, Diabetes Mellitus, Hyperlipidemia, Hypertension, Renal Disease, Sleep Apnea/CPAP/BIPAP, Supraventricular Tachycardia (SVT) Additional Past Medical History / Comment(s): BRAIN TUMOR-WAS SMALL AND DISCOVERED IN 2016, PT DID NOT FOLLOW UP AND NOW IT IS LARGER AND SYMPTOMATIC- UNK IF CANCEROUS AT THIS POINT-LOTS OF DIZZINESS WITH POSITION CHANGES. PT WAS TAKEN OFF DIABETIC MEDS DUE TO NORMAL BS AND HGB A1C OF 4.2, HAS RECENTLY BEEN O N STEROIDS AND HAS HAD ELEVATED SUGARS AND HER DR IS AWARE History of Any Multi-Drug Resistant Organisms: None Reported Past Surgical History: Adenoidectomy, Breast Surgery, Tonsillectomy Additional Past Surgical History / Comment(s): BREAST REDUCTION. SURG. FOR OVARIAN CYST Past Anesthesia/Blood Transfusion Reactions: Motion Sickness Additional Past Anesthesia/Blood Transfusion Reaction / Comm: HX OF VERTIGO Past Psychological History: No Psychological Hx Reported Smoking Status: Never smoker Past Alcohol Use History: None Reported Past Drug Use History: None Reported - Past Family History Father Family Medical History: Cancer Mother Family Medical History: COPD Medications and Allergies Home Medications Medication Instructions Recorded Confirmed Type Atorvastatin Calcium 20 mg PO HS 01/04/23 05/02/23 History Magnesium Oxide [Mag-Ox] 400 mg PO DAILY 01/04/23 05/02/23 History Aspirin EC [Ecotrin Low Dose] 81 mg PO DAILY 05/02/23 05/02/23 History Cholecalciferol [Vitamin D3 (25 25 mcg PO DAILY 05/02/23 05/02/23 History Mcg = 1000 Iu)] Metoprolol Succinate (ER) [Toprol 25 mg PO DAILY 05/02/23 05/02/23 History Xl] Allergies Allergy/AdvReac Type Severity Reaction Status Date / Time methocarbamol [From Robaxin] Allergy Unknown Verified 05/02/23 12:39 Sulfa (Sulfonamide Allergy Unknown Verified 05/02/23 12:39 Antibiotics) Surgical - Exam Vital Signs Temp Pulse Resp BP Pulse Ox 97.6 F 59 L 18 133/59 100 05/02/23 12:36 05/02/23 12:36 05/02/23 12:36 05/02/23 12:36 05/02/23 12:36 Results - Labs 05/03/23 05:28 05/03/23 05:28 Abnormal Lab Results - Last 24 Hours (Table) 05/02/23 05/03/23 Range/Units 13:29 05:28 BUN 26 H (7-17) mg/dL BUN/Creatinine Ratio 29.14 H (12.00-20.00) Ratio Glucose 144 H (74-99) mg/dL AST 44 H 43 H (14-36) U/L Total Protein 5.6 L (6.2-8.2) d/dL Diabetes panel 05/02/23 05/03/23 Range/Units 13:29 05:28 Sodium 138 142 (137-145) mmol/L Potassium 4.9 3.8 (3.5-5.1) mmol/L Chloride 103 104 (98-107) mmol/L Carbon Dioxide 27 26.3 (22-30) mmol/L BUN 26 H 20.4 (7-17) mg/dL Creatinine 0.74 0.7 (0.52-1.04) mg/dL Glucose 144 H 99 (74-99) mg/dL Calcium 9.3 9.0 (8.4-10.2) mg/dL AST 44 H 43 H (14-36) U/L ALT 23 27 (4-34) U/L Alkaline Phosphatase 92 102 (38-126) U/L Total Protein 6.8 5.6 L (6.3-8.2) g/dL Albumin 4.0 3.8 (3.5-5.0) g/dL Calcium panel 05/02/23 05/03/23 Range/Units 13:29 05:28 Calcium 9.3 9.0 (8.4-10.2) mg/dL Phosphorus 3.3 (2.4-5.1) mg/dL Albumin 4.0 3.8 (3.5-5.0) g/dL Pituitary panel 05/02/23 05/03/23 Range/Units 13:29 05:28 Sodium 138 142 (137-145) mmol/L Potassium 4.9 3.8 (3.5-5.1) mmol/L Chloride 103 104 (98-107) mmol/L Carbon Dioxide 27 26.3 (22-30) mmol/L BUN 26 H 20.4 (7-17) mg/dL Creatinine 0.74 0.7 (0.52-1.04) mg/dL Glucose 144 H 99 (74-99) mg/dL Calcium 9.3 9.0 (8.4-10.2) mg/dL Adrenal panel 05/02/23 05/03/23 Range/Units 13:29 05:28 Sodium 138 142 (137-145) mmol/L Potassium 4.9 3.8 (3.5-5.1) mmol/L Chloride 103 104 (98-107) mmol/L Carbon Dioxide 27 26.3 (22-30) mmol/L BUN 26 H 20.4 (7-17) mg/dL Creatinine 0.74 0.7 (0.52-1.04) mg/dL Glucose 144 H 99 (74-99) mg/dL Calcium 9.3 9.0 (8.4-10.2) mg/dL Total Bilirubin 1.0 0.4 (0.2-1.3) mg/dL AST 44 H 43 H (14-36) U/L ALT 23 27 (4-34) U/L Alkaline Phosphatase 92 102 (38-126) U/L Total Protein 6.8 5.6 L (6.3-8.2) g/dL Albumin 4.0 3.8 (3.5-5.0) g/dL
--- NOTE | 2023-05-03 22:02 | P.CONS ---
History of Present Illness - Reason for Consult Consult date: 05/03/23 Right gluteal abscess Requesting physician: Magdalene Henry - Chief Complaint Right posterior thigh and gluteal area pain swelling and drainage x few day - History of Present Illness Patient is a 77-year-old female with a past medical history significant for diabetes mellitus hypertension hyperlipidemia renal disease presenting to the hospital yesterday afternoon concerning for increasing pain swelling and redness to the right gluteal area patient mention it started as small area of swelling with a had to wait that has gradually increased in size becoming more painful patient describes the pain to be throbbing intensity of 8 out of 10 without radiation started to drain with the symptoms the patient presented to the hospital on arrival to the ER patient was afebrile and no fever has been recorded subsequently patient did have a normal white count kidney function was normal liver enzymes are normal blood cultures obtained as well as local culture patient was started on Rocephin and vancomycin infectious disease was consulted for further management of antibiotic therapy Review of Systems Positive point and negatives has been mentioned in the HPI, complete review of systems was performed and all other systems are negative Past Medical History Past Medical History: Cancer, Diabetes Mellitus, Hyperlipidemia, Hypertension, Renal Disease, Sleep Apnea/CPAP/BIPAP, Supraventricular Tachycardia (SVT) Additional Past Medical History / Comment(s): BRAIN TUMOR-WAS SMALL AND DISCOVERED IN 2016, PT DID NOT FOLLOW UP AND NOW IT IS LARGER AND SYMPTOMATIC- UNK IF CANCEROUS AT THIS POINT-LOTS OF DIZZINESS WITH POSITION CHANGES. PT WAS TAKEN OFF DIABETIC MEDS DUE TO NORMAL BS AND HGB A1C OF 4.2, HAS RECENTLY BEEN ON STEROIDS AND HAS HAD ELEVATED SUGARS AND HER DR IS AWARE History of Any Multi-Drug Resistant Organisms: None Reported Past Surgical History: Adenoidectomy, Breast Surgery, Tonsillectomy Additional Past Surgical History / Comment(s): BREAST REDUCTION. SURG. FOR OVARIAN CYST Past Anesthesia/Blood Transfusion Reactions: Motion Sickness Additional Past Anesthesia/Blood Transfusion Reaction / Comm: HX OF VERTIGO Past Psychological History: No Psychological Hx Reported Smoking Status: Never smoker Past Alcohol Use History: None Reported Past Drug Use History: None Reported - Past Family History Father Family Medical History: Cancer Mother Family Medical History: COPD Medications and Allergies Home Medications Medication Instructions Recorded Confirmed Type Atorvastatin Calcium 20 mg PO HS 01/04/23 05/02/23 History Magnesium Oxide [Mag-Ox] 400 mg PO DAILY 01/04/23 05/02/23 History Aspirin EC [Ecotrin Low Dose] 81 mg PO DAILY 05/02/23 05/02/23 History Cholecalciferol [Vitamin D3 (25 25 mcg PO DAILY 05/02/23 05/02/23 History Mcg = 1000 Iu)] Metoprolol Succinate (ER) [Toprol 25 mg PO DAILY 05/02/23 05/02/23 History Xl] Allergies Allergy/AdvReac Type Severity Reaction Status Date / Time methocarbamol [From Robaxin] Allergy Unknown Verified 05/02/23 12:39 Sulfa (Sulfonamide Allergy Unknown Verified 05/02/23 12:39 Antibiotics) Physical Exam Vitals: Vital Signs Temp Pulse Pulse Resp BP BP Pulse Ox 05/03/23 07:00 97.8 F 63 16 145/74 100 05/03/23 02:00 97.6 F 67 15 130/76 100 05/03/23 01:44 63 16 149/82 100 05/02/23 22:30 66 16 134/77 100 Intake and Output 05/03/23 05/03/23 05/03/23 06:59 14:59 22:59 Intake Total 118 Balance 118 Intake: Oral 118 Other: # Voids 1 1 # Bowel Movements 2 Weight 77.564 kg GENERAL DESCRIPTION: An elderly female lying in bed, no distress. No tachypnea or accessory muscle of respiration use. HEENT: Shows Pallor , no scleral icterus. Oral mucous membrane is dry. No pharyngeal erythema or thrush NECK: Trachea central, no thyromegaly. LUNGS: Unlabored breathing. Clear to auscultation anteriorly. No wheeze or crackle. HEART: S1, S2, regular rate and rhythm. No loud murmur ABDOMEN: Soft, no tenderness , guarding or rigidity, no organomegaly EXTREMITIES: Right posterior thigh/gluteal area did have area of induration and swelling redness and drainage SKIN: No rash, no masses palpable. NEUROLOGICAL: The patient is awake, alert, oriented x3, mood and affect normal. Results CBC & Chem 7: 05/03/23 05:28 05/05/23 06:50 Labs: Abnormal Lab Results - Last 24 Hours (Table) 05/03/23 Range/Units 05:28 BUN/Creatinine Ratio 29.14 H (12.00-20.00) Ratio AST 43 H (13-35) U/L Total Protein 5.6 L (6.2-8.2) d/dL Assessment and Plan (1) Abscess of right thigh Current Visit: Yes Status: Acute Code(s): L02.415 - CUTANEOUS ABSCESS OF RIGHT LOWER LIMB SNOMED Code(s): 02383597549143718 Plan: 1patient presented hospital with right gluteal area pain swelling redness and drainage concerning for an abscess likely from gram-positive skin altagracia such as staph likely is likely gram-negative infection 2-patient with a sulfa allergy 3-await surgical evaluation and drainage of this abscess 4-continue with empiric antibiotic of vancomycin and Rocephin We will follow on clinical condition and cultures to further adjust medication if needed Thank you for this consultation we will follow the patient along with you Dictation was produced using [employer] dictation software. please excuse any grammatical, word or spelling errors. Time with Patient: Greater than 30
[2023-05-03] MEDS: ATORVASTATIN 20 MG TAB PO SCH (22:31)
[2023-05-03] MEDS ORDERED: ACETAMINOPHEN TAB 325 MG TAB PO PRN (22:34)
[2023-05-04] MEDS: PANTOPRAZOLE 40 MG TABLET PO SCH (06:00)
[2023-05-04 06:13] LABS: African American GFR (CKD) >90 (>60 ml/min/1.73 sqM); Non-African American GFR(CKD) 78 (>60 ml/min/1.73 sqM)
[2023-05-04] MEDS: METOPROLOL SUCCINATE (ER) 25 MG TAB.ER.24H PO SCH (08:32)
[2023-05-04] MEDS: ASPIRIN 81 MG PO SCH (08:32)
[2023-05-04] MEDS: MAGNESIUM OXIDE 400 MG TAB PO SCH (08:32)
[2023-05-04] MEDS ORDERED: VANCOMYCIN TROUGH DUE 1 EACH MISC MISCELLANE ONE (15:00)
--- NOTE | 2023-05-04 16:16 | P.PN ---
Subjective Progress Note Date: 05/04/23 CHIEF COMPLAINT: Right thigh abscess HISTORY OF PRESENT ILLNESS: Patient reports improvement in pain. Area is draining. Afebrile. WBC 5.24 PHYSICAL EXAM: VITAL SIGNS: Reviewed. GENERAL: Well-developed in no acute distress. ABDOMEN: Soft. Nondistended. Nontender. NEUROLOGIC: Alert and oriented. Cranial nerves II through XII grossly intact. Skin: Right thigh abscess with purulent drainage. Minimal tenderness. Area is softer ASSESSMENT: 1. Right upper thigh abscess actively draining 2. History of diabetes mellitus with normal hemoglobin A1c PLAN: -No surgical intervention planned -Continue antibiotics -Encourage patient to shower daily Physician Front Office Associate note has been reviewed by physician. Signing provider agrees with the documented findings, assessment, and plan of care. Objective - Vital Signs Vital signs: Vital Signs Temp 97.7 F 05/04/23 08:00 Pulse 62 05/04/23 08:00 Resp 16 05/04/23 08:00 BP 129/75 05/04/23 08:00 Pulse Ox 92 L 05/04/23 08:00 FiO2 Intake & Output 05/03/23 05/04/23 05/04/23 18:59 06:59 18:59 Intake Total 118 Output Total 200 Balance 118 -200 Intake: Oral 118 Output: Urine 200 Other: # Voids 1 1 # Bowel Movements 2 1 - Labs CBC & Chem 7: 05/03/23 05:28 05/04/23 05:36 Labs: Microbiology - Last 24 Hours (Table) 05/03/23 05:42 Gram Stain - Preliminary Buttock Wound Culture - Preliminary Presumptive Staph aureus 05/02/23 13:48 Blood Culture - Preliminary Blood 05/02/23 13:25 Blood Culture - Preliminary Blood
[2023-05-04] MEDS: VANCOMYCIN 1,500 MG in SODIUM CHLORIDE 0.9% 500 ML 500 ML IVPB SCH (16:39)
[2023-05-04] MEDS: SODIUM CHLORIDE 0.9% 1,000 ML IV SCH (16:40)
--- NOTE | 2023-05-04 16:53 | P.PN ---
Subjective Progress Note Date: 05/04/23 Principal diagnosis: Right posterior thigh/gluteal area abscess and cellulitis Patient is a 77-year-old female with a past medical history significant for diabetes mellitus hypertension hyperlipidemia renal disease presenting to the hospital concerning for increasing pain swelling and redness to the right posterior thigh/gluteal area and has been diagnosed with an abscess with spontaneous drainage. On today's evaluation that is05/04/2023, the patient remains to be afebrile, the patient is breathing comfortably , the patient denies chest pain and no significant cough, the patient denies nausea and vomiting no abdominal pain and no diarrhea, patient pain to the right posterior thigh gluteal area has decreased in intensity Patient did have white count of 5.24 as of 05/03/2020. Creatinine 0.75, culture growing presumptive staph aureus Objective - Vital Signs Vital signs: Vital Signs Temp 97.7 F 05/04/23 08:00 Pulse 62 05/04/23 08:00 Resp 16 05/04/23 08:00 BP 129/75 05/04/23 08:00 Pulse Ox 92 L 05/04/23 08:00 FiO2 Intake & Output 05/03/23 05/04/23 05/04/23 18:59 06:59 18:59 Intake Total 118 Output Total 200 Balance 118 -200 Intake: Oral 118 Output: Urine 200 Other: # Voids 1 1 # Bowel Movements 2 1 - Exam GENERAL DESCRIPTION: An elderly female lying in bed in no distress RESPIRATORY SYSTEM: Unlabored breathing , decreased breath sounds at bases HEART: S1 S2 regular rate and rhythm , ABDOMEN: Soft , no tenderness EXTREMITIES: Right posterior thigh area swelling redness induration has slightly decreased - Labs CBC & Chem 7: 05/03/23 05:28 05/04/23 05:36 Labs: Microbiology - Last 24 Hours (Table) 05/03/23 05:42 Gram Stain - Preliminary Buttock Wound Culture - Preliminary Presumptive Staph aureus 05/02/23 13:48 Blood Culture - Preliminary Blood 05/02/23 13:25 Blood Culture - Preliminary Blood Assessment and Plan (1) Abscess of right thigh Current Visit: Yes Status: Acute Code(s): L02.415 - CUTANEOUS ABSCESS OF RIGHT LOWER LIMB SNOMED Code(s): 41985426693652811 Plan: 1patient presented hospital with right gluteal area pain swelling redness and drainage concerning for an abscess likely from gram-positive skin altagracia such as staph likely is likely gram-negative infection 2-patient with a sulfa allergy 3Patient has been evaluated by surgery recommending no drainage 4-local culture growing staph aureus with sensitivities pending, patient continue with empiric antibiotic of vancomycin and Rocephin while waiting for the culture finalized to determine discharge antibiotics Dictation was produced using [employer] dictation software. please excuse any grammatical, word or spelling errors. Time with Patient: Less than 30
--- NOTE | 2023-05-04 18:55 | P.PN ---
Subjective Progress Note Date: 05/04/23 This is a 77-year-old female with medical history of diabetes, hypertension, hyperlipidemia, sleep apnea. Presented to the hospital with concern for a ulcer/wound on her right gluteal cleft region that has opened up on has been draining. Reports last 2 days of feeling chilled and fatigued but no fever. Denies shortness of breath denies chest pain. No nausea vomiting diarrhea, no pain. On assessment in the right gluteal fold there is a 4 inch area of induration with a center ulceration that has purulent drainage. Patient has been afebrile here, initial work up shows normal white blood cell count. Started on empiric antibiotic coverage with ceftriaxone and vancomycin. General surgery will be consulted for possible I and D. 05/04/2023 Patient is evaluated today resting in bed. No acute complaints overnight. Patients wound to the right thigh region is spontaneously draining and gen surgery not recommending I and D at this time. Warm compress being used. Preliminary cultures showing staph aureus. Patient is on IV ceftriaxone and IV vancomycin. ID following. Review of Systems Constitutional: Denied any fatigue denied any fever. Cardio vascular: denied any chest pain, palpitations Gastrointestinal: denied any nausea, vomiting, diarrhea Pulmonary: Denied any shortness of breath cough Neurologic denied any new focal deficits All inpatient medications were reviewed and appropriate changes in these medications as dictated in the interval history and assessment and plan. PHYSICAL EXAMINATION: GENERAL: The patient is alert and oriented x3, not in any acute distress. Well developed, well nourished. HEENT: Pupils are round and equally reacting to light. EOMI. No scleral icterus. No conjunctival pallor. Normocephalic, atraumatic. No pharyngeal erythema. No thyromegaly. CARDIOVASCULAR: S1 and S2 present. No murmurs, rubs, or gallops. PULMONARY: Chest is clear to auscultation, no wheezing or crackles. ABDOMEN: Soft, nontender, nondistended, normoactive bowel sounds. No palpable organomegaly. MUSCULOSKELETAL: No joint swelling or deformity. EXTREMITIES: No cyanosis, clubbing, or pedal edema. NEUROLOGICAL: Gross neurological examination did not reveal any focal deficits. SKIN: 4 in area of induration right thigh/gluteal cleft with central ulceration with purulent and serosanguineous drainage. Assessment and Plan Right gluteal abscess with cellulitis and surrounding induration no evidence of sepsis spontaneously draining no need for I and D at this time culture showing presumptive stap aureus and patient is on IV vancomycin. ID following. Pending final cultures. Diabetes Mellitus type 2 controlled Hypertension Hyperlipidemia resumed on statin Hx of brain tumor being monitored History of SVT on Toprol XL History of sleep apnea Obesity GI Prophylaxis DVT prophylaxis Full Code The impression and plan of care has been dictated by Magdalene Henry, Nurse Practitioner as directed. Dr. Anamaria MD I have performed a history and physical examination and medical decision making of this patient, discussed the same with the dictator, and agree with the dictators assessment and plan as written, documented as a scribe. Based on total visit time, I have performed more than 50% of this visit. Objective - Vital Signs Vital signs: Vital Signs Temp 97.7 F 05/04/23 08:00 Pulse 62 05/04/23 08:00 Resp 16 05/04/23 08:00 BP 129/75 05/04/23 08:00 Pulse Ox 92 L 05/04/23 08:00 FiO2 Intake & Output 05/03/23 05/04/23 05/04/23 18:59 06:59 18:59 Intake Total 118 Output Total 200 Balance 118 -200 Intake: Oral 118 Output: Urine 200 Other: # Voids 1 1 # Bowel Movements 2 1 - Labs CBC & Chem 7: 05/03/23 05:28 05/04/23 05:36 Labs: Microbiology - Last 24 Hours (Table) 05/03/23 05:42 Gram Stain - Preliminary Buttock 05/02/23 13:48 Blood Culture - Preliminary Blood 05/02/23 13:25 Blood Culture - Preliminary Blood
[2023-05-04] MEDS: ATORVASTATIN 20 MG TAB PO SCH (19:46)
[2023-05-05] MEDS: SODIUM CHLORIDE 0.9% 1,000 ML IV SCH ×2 (02:10→19:16)
[2023-05-05] MEDS: PANTOPRAZOLE 40 MG TABLET PO SCH (05:42)
[2023-05-05 07:49] LABS: African American GFR (CKD) >90 (>60 ml/min/1.73 sqM); Non-African American GFR(CKD) 86 (>60 ml/min/1.73 sqM)
[2023-05-05] MEDS: METOPROLOL SUCCINATE (ER) 25 MG TAB.ER.24H PO SCH (09:00)
[2023-05-05] MEDS: ASPIRIN 81 MG PO SCH (09:00)
[2023-05-05] MEDS: MAGNESIUM OXIDE 400 MG TAB PO SCH (09:00)
[2023-05-05] MEDS: VANCOMYCIN 1,500 MG in SODIUM CHLORIDE 0.9% 500 ML 500 ML IVPB SCH (09:00)
--- NOTE | 2023-05-05 12:11 | P.PN ---
Subjective Progress Note Date: 05/05/23 Principal diagnosis: Right posterior thigh/gluteal area abscess and cellulitis Patient is a 77-year-old female with a past medical history significant for diabetes mellitus hypertension hyperlipidemia renal disease presenting to the hospital concerning for increasing pain swelling and redness to the right posterior thigh/gluteal area and has been diagnosed with an abscess with spontaneous drainage. On today's evaluation that is 05/05/2023, the patient denies any fever or any chills, the patient is breathing comfortably , the patient denies chest pain and no significant cough, the patient denies nausea and vomiting no abdominal pain and no diarrhea, patient pain to the right posterior thigh gluteal area has decreased in intensity Patient did have white count of 5.24 as of 05/03/2023. Creatinine is 0.6 and culture finalized with MRSA Objective - Vital Signs Vital signs: Vital Signs Temp 98.1 F 05/05/23 07:46 Pulse 71 05/05/23 07:46 Resp 16 05/05/23 07:46 BP 167/78 05/05/23 07:46 Pulse Ox 96 05/05/23 07:46 FiO2 Intake & Output 05/04/23 05/05/23 05/05/23 18:59 06:59 18:59 Intake Total 438 Output Total 400 500 Balance 38 -500 Intake: Oral 438 Output: Urine 400 500 Other: Voiding Method External Catheter # Voids 4 - Exam GENERAL DESCRIPTION: An elderly female lying in bed in no distress RESPIRATORY SYSTEM: Unlabored breathing , decreased breath sounds at bases HEART: S1 S2 regular rate and rhythm , ABDOMEN: Soft , no tenderness EXTREMITIES: Right posterior thigh area swelling redness induration has decreased in intensity - Labs CBC & Chem 7: 05/03/23 05:28 05/05/23 06:50 Labs: Microbiology - Last 24 Hours (Table) 05/02/23 13:48 Blood Culture - Preliminary Blood 05/02/23 13:25 Blood Culture - Preliminary Blood 05/03/23 05:42 Gram Stain - Preliminary Buttock Wound Culture - Preliminary Presumptive Staph aureus Assessment and Plan (1) Abscess of right thigh Current Visit: Yes Status: Acute Code(s): L02.415 - CUTANEOUS ABSCESS OF RIGHT LOWER LIMB SNOMED Code(s): 67242288617569893 Plan: 1patient presented hospital with right gluteal area pain swelling redness and drainage concerning for an abscess likely from gram-positive skin altagracia such as staph likely is likely gram-negative infection 2-patient with a sulfa allergy 3Patient has been evaluated by surgery recommending no drainage 4-local culture grew MRSA patient is ALLERGIC to sulfa, we will continue the patient on vancomycin while inpatient finishing therapy with oral doxycycline and close outpatient follow-up discussed with SUPERVISOR AUDIT CLERKS for admitting team Dictation was produced using [employer] dictation software. please excuse any gram matical, word or spelling errors. Time with Patient: Less than 30
--- NOTE | 2023-05-05 12:58 | P.PN ---
Progress Note - Text Progress Note Date: 05/05/23 Patient is doing well. Her left gluteal skin lesion is healing. There is no significant drainage. Resolving skin abscess. Patient will receive supportive care.
[2023-05-05 15:12] VITALS: RESP 15
[2023-05-05 15:14] VITALS: BP 167/75; PULSE 64; TEMP 97.5
--- NOTE | 2023-05-06 18:06 | P.DS ---
Providers Date of admission: 05/02/23 19:33 Attending physician: Reynaldo Calvillo Consults: 05/03/23 09:59 Consult Physician Routine Consulting Provider: Too Shin Consult Reason/Comments: I & D of right gluteal abcess Do you want consulting provider notified?: Yes 05/03/23 12:58 Consult Physician Routine Consulting Provider: Nicole Beaver Consult Reason/Comments: right gluteal abscess Do you want consulting provider notified?: Yes Primary care physician: [facility] Course: Final Diagnosis Right gluteal abscess with cellulitis and surrounding induration no evidence of sepsis spontaneously draining no need for I and D at this time culture showing MRSA. Diabetes Mellitus type 2 controlled Hypertension Hyperlipidemia resumed on statin Hx of brain tumor being monitored History of SVT on Toprol XL History of sleep apnea Obesity GI Prophylaxis DVT prophylaxis Full Code Discharge Disposition Patient is stable for discharge home has been cleared by infectious disease to discharge on oral doxycycline for the next 10 days. Patient is also given PPI to avoid GI upset. The wound to the right gluteal/thigh region continues to spontaneously drain and did not require I and D. Follow up with PCP and Infectious disease on discharge. Hospital Course This is a 77-year-old female with medical history of diabetes, hypertension, hyperlipidemia, sleep apnea. Presented to the hospital with concern for a ulcer/wound on her right gluteal cleft region that has opened up on has been draining. Reports last 2 days of feeling chilled and fatigued but no fever. Denies shortness of breath denies chest pain. No nausea vomiting diarrhea, no pain. On assessment in the right gluteal fold there is a 4 inch area of induration with a center ulceration that has purulent drainage. Patient has been afebrile here, initial work up shows normal white blood cell count. Started on empiric antibiotic coverage with ceftriaxone and vancomycin. General surgery will be consulted for possible I and D. The wound was draining spontaneously and surgery not recommending I and D at this time. Patients wound culture finalized to show MRSA and ID recommending to discharge on oral doxyc ycline to complete course of antibiotic therapy. Renal function normal no eleveted white blood cell count. Patient remains afebrile. Up ambulating. Patient denies chest pain, no shortness of breath. Her lungs are clear S1 S2 auscultated. The area of induration surrounding the wound is improving. Please see medication reconciliation for a list of current medication. Thank you for allowing us to participate in the care of this patient. The impression and plan of care has been dictated by Magdalene Henry, Nurse Practitioner as directed. Dr. Anamaria MD I have performed a history and physical examination and medical decision making of this patient, discussed the same with the dictator, and agree with the dictators assessment and plan as written, documented as a scribe. Based on total visit time, I have performed more than 50% of this visit. Patient Condition at Discharge: Stable Plan - Discharge Summary Discharge Rx Participant: No New Discharge Prescriptions: New Pantoprazole [Protonix] 40 mg PO AC-BRKFST #30 tab Doxycycline [Vibramycin] 100 mg PO BID 10 Days #20 capsule Continue Atorvastatin Calcium 20 mg PO HS Aspirin EC [Ecotrin Low Dose] 81 mg PO DAILY Cholecalciferol [Vitamin D3 (25 Mcg = 1000 Iu)] 25 mcg PO DAILY Magnesium Oxide [Mag-Ox] 400 mg PO DAILY Metoprolol Succinate (ER) [Toprol XL] 25 mg PO DAILY Discharge Medication List Atorvastatin Calcium 20 mg PO HS 01/04/23 [History] Magnesium Oxide [Mag-Ox] 400 mg PO DAILY 01/04/23 [History] Aspirin EC [Ecotrin Low Dose] 81 mg PO DAILY 05/02/23 [History] Cholecalciferol [Vitamin D3 (25 Mcg = 1000 Iu)] 25 mcg PO DAILY 05/02/23 [Histor y] Metoprolol Succinate (ER) [Toprol XL] 25 mg PO DAILY 05/02/23 [History] Doxycycline [Vibramycin] 100 mg PO BID 10 Days #20 capsule 05/05/23 [Rx] Pantoprazole [Protonix] 40 mg PO AC-BRKFST #30 tab 05/05/23 [Rx] Follow up Appointment(s)/Referral(s): [facility], [NON-STAFF] - 1 Week (Wound Care) Jessi Esteban MD [Primary Care Provider] - 1-2 days Nicole Beaver MD [STAFF PHYSICIAN] - 1 Week Ambulatory/Diagnostic Orders: Basic Metabolic Panel [LAB.AMB] Time Frame: 3 Days, Location: None Selected Patient Instructions/Handouts: MRSA (Methicillin-Resistant Staphylococcus Aureus) (DC), Abscess (GEN) Activity/Diet/Wound Care/Special Instructions: Keep wound covered with gauze if continuing to drain. Follow up with your PCP and Dr. Beaver in the office. Discharge Disposition: HOME SELF-CARE
== END 2023-05-05 19:35 | disposition home or self-care (01) ==
LOC: EC 11:55 → OBSVTOIN 19:33 → 6NMEDSUR 19:33 → INTOOBSV 19:33 → 6NMEDSUR 22:28 → UNDODISIN 05-05 19:35
PROVIDERS: ADMIT Hospitalist; ATTEND Hospitalist
DX: L02.31 Cutaneous abscess of buttock (principal); I47.1 Supraventricular tachycardia; L89.319 Pressure ulcer of right buttock, unspecified stage; L02.415 Cutaneous abscess of right lower limb; L03.115 Cellulitis of right lower limb; B95.62 Methicillin resistant Staphylococcus aureus infection as the cause of diseases classified elsewhere; Z16.24 Resistance to multiple antibiotics; D49.6 Neoplasm of unspecified behavior of brain; E11.9 Type 2 diabetes mellitus without complications; E78.5 Hyperlipidemia, unspecified; I10 Essential (primary) hypertension; N28.9 Disorder of kidney and ureter, unspecified; G47.30 Sleep apnea, unspecified; E66.9 Obesity, unspecified; Z68.30 Body mass index [BMI] 30.0-30.9, adult; Z79.82 Long term (current) use of aspirin; Z79.899 Other long term (current) drug therapy; Z88.2 Allergy status to sulfonamides; Z88.8 Allergy status to other drugs, medicaments and biological substances; Z98.890 Other specified postprocedural states; Z82.5 Family history of asthma and other chronic lower respiratory diseases; Z80.9 Family history of malignant neoplasm, unspecified
CPT/HCPCS: 96361 ×2; 96366 ×4; 96375; 96365; 96367; 99284; 36415; 80053 ×2; 82565 ×2; 83605; 83735; 84100; 85025 ×2; 80202; 87040; 87070; 87205; 87077; 87186; G0378 ×4; J3370 ×4; J0696 ×4; C9113; 99285

== ENCOUNTER → 2024-08-12 | Outpatient (CLI) | payer MEDICARE, OTHER ==
--- NOTE | 2024-08-12 14:16 | CT ---
EXAMINATION TYPE: CT shoulder LT wo con DATE OF EXAM: 08/12/2024 8:17 AM COMPARISON: . Extremity radiograph same day. CLINICAL INDICATION: Female, 78 years old with history of S42.292A OTH DISP FX OF UPPER END OF LEFT H UMERUS,; PHH, fall, fx upper humerus TECHNIQUE: Axial images were obtained of the CT shoulder LT wo con, Additional coronal and sagittal r eformatted images and soft tissue and bone window were obtained for review. 3-D reconstruction was cr eated on a separate workstation. Contrast used: mL of , (None if empty) Oral contrast used: (None if empty) CT DLP: 378.6 mGycm, Automated exposure control for dose reduction was used. FINDINGS degeneration changes of the left shoulder with mild osteophyte formation and joint space jairon rowing. There is a fracture of the proximal left femur surgical neck with posterior displacement of t he humeral head with anterior displacement of the shaft. The remainder of the osseous structures are intact. There is degeneration changes of the acromioclavicular joint with osteophyte formation and areli int space narrowing. IMPRESSION: Proximal left humerus fracture with incomplete osseous fusion. There is anterior displacement of the arm and posterior displacement of the humeral head with respect to each other. No significant osseous fusion at this time. [facility], , 08/12/2024 2:13 PM
== END | disposition home or self-care (01) ==
LOC: RADCTMAIN 07:52
PROVIDERS: ATTEND Orthopaedic Surgery
DX: S42.292A Other displaced fracture of upper end of left humerus, initial encounter for closed fracture (principal); W19.XXXA Unspecified fall, initial encounter